=== PATIENT | female | born 1980 | race Caucasian/White ===

== ENCOUNTER 2016-12-01 16:24 | Outpatient (CLI) | payer SELFPAY ==
--- NOTE | 2016-12-01 16:54 | DIAGNOSTIC IMAGING REPORT ---
PROCEDURE: XR FINGER - LEFT INDICATION: INJURY OF LEFT INDEX FINGER TECHNIQUE: Four views. COMPARISON: None. FINDINGS: Osseous structures and joint spaces are normal. IMPRESSION: 1. Normal left index finger and hand.
== END 2016-12-01 23:00 | disposition home or self-care (01) ==
LOC: XR SRH 16:24
DX: S69.92XA Unspecified injury of left wrist, hand and finger(s), initial encounter (principal)